=== PATIENT | female | born 1945 | race Caucasian/White ===

== ENCOUNTER 2018-08-06 14:02 | Outpatient (CLI) | payer OTHER | END 2018-08-06 14:03 | LOC: RAD 14:02 | PROVIDERS: ATTEND Family Medicine | DX: Z13.9 Encounter for screening, unspecified (principal); Z78.0 Asymptomatic menopausal state | CPT/HCPCS: 77080 ==

== ENCOUNTER 2018-10-26 06:50 | Emergency (ER) | payer OTHER ==
[2018-10-26 07:13] VITALS: BP 172/86
--- NOTE | 2018-10-26 07:34 | ED Physician Documentation ---
Upper Respiratory Symptoms - HISTORIAN Historian: patient - HPI Stated Complaint: cough, congestion Chief Complaint: Cough/ Upper Respiratory Onset: days ago (10) Duration: constant Context: denies: recent foreign travel Severity: mild Associated Symptoms: runny nose, sinus pain, sinus drainage. denies: fever, sore throat, hoarseness, shortness of breath, headache Worsened by Deep Breath: No Further Comments: yes (she states 10 days ago she started with sinus drainage and pressure - no fever. She has had sick contacts) - ROS CONST/EYES: denies: weakness, eye redness, eye itching - PAST HX Lung Disease: none Allergies/Adverse Reactions: Allergies Allergy/AdvReac Type Severity Reaction Status Date / Time morphine Allergy Unknown Verified 10/26/18 07:13 - SOCIAL HX Smoking History: non-smoker Alcohol Use: none Drug Use: none - FAMILY HX Family History: none - VITAL SIGNS Vital Signs: Vital Signs Temp Pulse Resp BP Pulse Ox 97.8 F 78 19 172/86 98 10/26/18 07:43 10/26/18 07:43 10/26/18 07:43 10/26/18 07:43 10/26/18 07:43 - REVIEWED ASSESSMENTS Nursing Assessment Reviewed: Yes Vitals Reviewed: Yes Upper Respiratory Symptoms - EXAM General Appearance: no acute distress, alert EENT: eyes nml inspection, pain over sinuses (bilateral ), TM dullness (R), TM dullness (L) Neck: normal inspection Respiratory: no resp. distress, breath sounds nml, no pain on inspiration, speaks full sentences Abdomen: non-tender CVS: reg rate & rhythm, heart sounds normal Skin: color nml, no rash Extremities: non-tender, normal range of motion, no evidence of injury, no edema Neuro/Psych: oriented x3 Discharge Clincal Impression: Cough Sinusitis Qualifiers: Sinusitis location: frontal Chronicity: acute Recurrence: non-recurrent Qualified Code(s): J01.10 - Acute frontal sinusitis, unspecified Referrals: Wade Rivera MD [Primary Care Provider] - 2 Days Comments: 1. Azithromycin (zpack) take as directed 2. Medrol Dose Pack - as directed 3. Tessalon Pearls take 1 by mouth every 8 hours as needed for cough 4. Increase fluids 5. Rest 6. Sinus rinse 7. Follow up with PCP in 2-4days 8. Return to ER for any concerns Condition: Stable Disposition: 01 HOME, SELF-CARE Decision to Admit: NO Date of Decison to Admit: 10/26/18 Decision Time: 07:34
== END 2018-10-26 07:43 | disposition home or self-care (01) ==
LOC: ED 06:50
DX: J01.10 Acute frontal sinusitis, unspecified (principal); R05 Cough
CPT/HCPCS: 99281; 99282

== ENCOUNTER 2019-02-10 08:10 | Emergency (ER) | payer OTHER ==
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
[2019-02-10] MEDS: KETOROLAC TROMETHAMINE 60 MG/2 ML VIAL IM ONE (08:37)
[2019-02-10 09:44] VITALS: BP 193/87
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
== END 2019-02-10 09:32 ==
LOC: ED 08:10
DX: Z04.1 Encounter for examination and observation following transport accident (principal); M54.5 Low back pain; V43.52XA Car driver injured in collision with other type car in traffic accident, initial encounter; Y93.89 Activity, other specified; Y92.410 Unspecified street and highway as the place of occurrence of the external cause
CPT/HCPCS: 72131; 96372; 99283; 99284; J1885